=== PATIENT | male | born 1965 | race Caucasian/White ===

== ENCOUNTER 2017-08-24 16:26 | Emergency (ER) | payer BC, OTHER ==
[2017-08-24] MEDS ORDERED: Sodium Chloride 0.9% 1000 ML 1,000 ML IV STA (16:45)
--- NOTE | 2017-08-24 16:50 | ERPHSYRPT ---
- History of Present Illness Time Seen by Provider: 08/24/17 16:47 Source: patient Exam Limitations: no limitations Physician History: mild to mod elevated blood sugar for one day, over 600, takes metformin, not dizzy, no NV, no fever, hx positional mild ache of the right shoulder for one week after lifting and bending, no injury Allergies/Adverse Reactions: No Known Drug Allergies Allergy (Verified 08/24/17 16:48) Home Medications: Omeprazole Magnesium [Prilosec Otc] 20 mg PO DAILY 08/26/15 [History] Metformin HCl 500 mg [Glucophage 500 MG] 500 mg PO BID 08/24/17 [History] Hx Tetanus, Diphtheria Vaccination/Date Given: Yes Hx Influenza Vaccination/Date Given: Yes Hx Pneumococcal Vaccination/Date Given: No - Review of Systems Constitutional: No Fever Eyes: No Eye Redness Ears, Nose, & Throat: No Mouth Pain Respiratory: No Cough, No Cyanosis, No Dyspnea Cardiac: No Chest Pain, No Syncope Abdominal/Gastrointestinal: No Abdominal Pain, No Vomiting Genitourinary Symptoms: No Dysuria Musculoskeletal: Joint Pain, No Back Pain, No Neck Pain Skin: No Rash Neurological: No Dizziness - Past Medical History Pertinent Past Medical History: Yes Cardiac History: High Cholesterol, Hypertension - Past Surgical History Past Surgical History: Yes Gastrointestinal: Hernia Repair - Social History Smoking Status: Current every day smoker Exposure to second hand smoke: Yes Drug Use: none Patient Lives Alone: No - Nursing Vital Signs Nursing Vital Signs: Initial Vital Signs Temperature 98.7 F 08/24/17 16:33 Pulse Rate 84 08/24/17 16:33 Respiratory Rate 18 08/24/17 16:33 Blood Pressure 141/87 08/24/17 16:33 O2 Sat by Pulse Oximetry 96 08/24/17 16:33 Pain Scale Pain Intensity 8 - Physical Exam General Appearance: no apparent distress Eye Exam: PERRL/EOMI Ears, Nose, Throat Exam: moist mucous membranes Neck Exam: normal inspection Respiratory Exam: normal breath sounds Cardiovascular Exam: regular rate/rhythm Gastrointestinal/Abdomen Exam: soft, No tenderness Extremity Exam: normal range of motion, other (tender deltoid, no sts, no heat, full kwabena, sen and pulses intact, nontender bony shoulder) Neurologic Exam: alert, oriented x 3, cooperative Skin Exam: warm, dry - Course Nursing assessment & vital signs reviewed: Yes Ordered Tests: Active Orders 24 hr Category Date Time Status ACCUCHECK [Accucheck] STAT Care 08/24/17 16:46 Active IV Insertion STAT Care 08/24/17 16:45 Active CMP Stat Lab 08/24/17 17:08 Completed Medication Summary Discontinued Medications Generic Name Dose Route Start Last Admin Trade Name Joseph PRN Reason Stop Dose Admin Acetaminophen 1,000 mg 08/24/17 17:34 08/24/17 17:37 Tylenol Extra Strength 500 Mg PO 08/24/17 17:35 1,000 mg STAT ONE Administration Acetaminophen Confirm 08/24/17 17:36 Tylenol Extra Strength 500 Mg Administered 08/24/17 17:37 Dose 1,000 mg .ROUTE .STK-MED ONE Sodium Chloride 1,000 mls @ 999 mls/hr 08/24/17 16:45 08/24/17 17:02 Sodium Chloride 0.9% 1000 Ml IV 08/24/17 17:45 999 mls/hr .Q1H1M STA Administration Sodium Chloride Confirm 08/24/17 17:01 Sodium Chloride 0.9% 1000 Ml Administered 08/24/17 17:02 Dose 1,000 mls @ ud .ROUTE .STK-MED ONE Insulin Human Regular 2 unit 08/24/17 17:27 08/24/17 17:32 Novolin R IV 08/24/17 17:28 2 unit STAT ONE Administration Insulin Human Regular Confirm 08/24/17 17:31 Novolin R Administered 08/24/17 17:32 Dose 2 unit .ROUTE .STK-MED ONE Lab/Rad Data: Laboratory Result Diagrams 08/24/17 17:08 Laboratory Results 08/24/17 Range/Units 17:08 Sodium 136 L (137-145) mmol/L Potassium 4.1 (3.5-5.1) mmol/L Chloride 101 (98-107) mmol/L Carbon Dioxide 22 (22-30) mmol/L Anion Gap 16.6 H (5-15) MEQ/L BUN 12 (9-20) mg/dL Creatinine 0.86 (0.66-1.25) mg/dL Estimated GFR > 60.0 ML/MIN Glucose 360 H (74-106) mg/dL Calcium 9.6 (8.4-10.2) mg/dL Total Bilirubin 0.60 (0.2-1.3) mg/dL AST 82 H (17-59) U/L ALT 81 H (0-50) U/L Alkaline Phosphatase 145 H (38-126) U/L Serum Total Protein 7.2 (6.3-8.2) g/dL Albumin 4.0 (3.5-5.0) g/dL - Progress Progress: improved Progress Note: 08/24/17 18:05 continue present medical regimen, return if worse, oral fluids Discussed with : Salvador Will see patient in: office Counseled pt/family regarding: lab results, diagnosis, need for follow-up - Departure Time of Disposition: 18:06 Departure Disposition: Home Clinical Impression: Hyperglycemia Condition: Stable Critical Care Time: No Referrals: MARIPOSA DUNCAN MD [Primary Care Provider] - Instructions: Hyperglycemia, Adult (DC)
[2017-08-24] MEDS ORDERED: Sodium Chloride 0.9% 1000 ML 1,000 ML ONE (17:01)
[2017-08-24 17:23] LABS: ALKALINE PHOSPHATASE 145 U/L (38-126); ANION GAP 16.6 MEQ/L (5-15); BLOOD UREA NITROGEN 12 mg/dL (9-20); CHLORIDE 101 mmol/L (98-107); Calcium 9.6 mg/dL (8.4-10.2); Carbon Dioxide 22 mmol/L (22-30); Creatinine 1 0.86 mg/dL (0.66-1.25); Glucose 360 mg/dL (74-106); Potassium 4.1 mmol/L (3.5-5.1); SGOT/AST 82 U/L (17-59); SGPT/ALT 81 U/L (0-50); SODIUM 136 mmol/L (137-145); Total Protein 7.2 g/dL (6.3-8.2)
[2017-08-24] MEDS ORDERED: NovoLIN R IV ONE (17:27)
[2017-08-24] MEDS ORDERED: NovoLIN R ONE (17:31)
[2017-08-24] MEDS ORDERED: TYLENOL EXTRA STRENGTH 500 MG PO ONE (17:34)
[2017-08-24] MEDS ORDERED: TYLENOL EXTRA STRENGTH 500 MG ONE (17:36)
[2017-08-24 17:39] VITALS: O2SAT 95
[2017-08-24 18:17] VITALS: BP 140/85; PULSE 76
== END 2017-08-24 18:17 | disposition home or self-care (01) ==
LOC: ED 16:26
DX: R73.9 Hyperglycemia, unspecified (principal); Z79.899 Other long term (current) drug therapy
CPT/HCPCS: 36000; 36415; 80053; 82962; 96360; 96374; 99284; A9270-GY

== ENCOUNTER 2019-04-06 13:13 | Emergency (ER) | payer OTHER ==
[2019-04-06 13:30] VITALS: BP 166/80; PULSE 71
--- NOTE | 2019-04-06 13:30 | ERPHSYRPT ---
- History of Present Illness Time Seen by Provider: 04/06/19 13:30 Source: patient Exam Limitations: no limitations (2) Physician History: 53 y/o white male with a prior h/o low back pain, presents with worsening right lower back pain over 2 to 3 days. 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 no acute trauma. pt has nkda and takes no meds. no urinary sx. Timing/Duration: constant, worse Method of Injury: other (driving heavy equipment at work) Quality: sharp, stabbing Back Pain Location: lumbar spine Severity of Pain-Max: moderate Severity of Pain-Current: moderate Modifying Factors: Improves With: movement Associated Symptoms: lower back pain, muscle spasms Previous symptoms: same symptoms as today Allergies/Adverse Reactions: No Known Drug Allergies Allergy (Verified 04/06/19 13:30) Home Medications: Omeprazole Magnesium [Prilosec Otc] 20 mg PO DAILY 08/26/15 [History] Glipizide Xl 10 mg [Glucotrol Xl 10 MG] 10 mg PO DAILY 04/06/19 [History] Hx Tetanus, Diphtheria Vaccination/Date Given: Yes Hx Influenza Vaccination/Date Given: Yes Hx Pneumococcal Vaccination/Date Given: No - Review of Systems Constitutional: No Symptoms Eyes: No Symptoms Ears, Nose, & Throat: No Symptoms Respiratory: No Symptoms Cardiac: No Symptoms Abdominal/Gastrointestinal: No Symptoms Genitourinary Symptoms: No Symptoms Musculoskeletal: Back Pain Skin: No Symptoms Neurological: No Symptoms Psychological: No Symptoms Endocrine: No Symptoms Hematologic/Lymphatic: No Symptoms Immunological/Allergic: No Symptoms All Other Systems: Reviewed and Negative - Past Medical History Pertinent Past Medical History: Yes Neurological History: No Pertinent History ENT History: No Pertinent History Cardiac History: High Cholesterol, Hypertension Respiratory History: No Pertinent History Endocrine Medical History: Diabetes Type II Musculoskeletal History: No Pertinent History GI Medical History: GERD History: No Pertinent History Psycho-Social History: Anxiety, Depression Male Reproductive Disorders: No Pertinent History - Past Surgical History Past Surgical History: Yes Neuro Surgical History: No Pertinent History Cardiac: No Pertinent History Respiratory: No Pertinent History Gastrointestinal: Hernia Repair Genitourinary: No Pertinent History Musculoskeletal: No Pertinent History Male Surgical History: No Pertinent History - Social History Smoking Status: Current every day smoker How long have you smoked: 42 Exposure to second hand smoke: Yes Drug Use: none Patient Lives Alone: No - Nursing Vital Signs Nursing Vital Signs: Initial Vital Signs Temperature 98.9 F 04/06/19 13:19 Pulse Rate 71 04/06/19 13:19 Blood Pressure 166/80 04/06/19 13:19 O2 Sat by Pulse Oximetry 97 04/06/19 13:19 Pain Scale Pain Intensity [Right 9 Posterior Distal Back] Pain Intensity 9 - Physical Exam General Appearance: mild distress, alert, anxiety Eye Exam: PERRL/EOMI, eyes nml inspection Ears, Nose, Throat Exam: normal ENT inspection, moist mucous membranes Neck Exam: normal inspection, non-tender, supple, full range of motion Respiratory Exam: airway intact, No chest tenderness, No respiratory distress Gastrointestinal Exam: No tenderness Rectal Exam: not done Back Exam: normal inspection, normal range of motion, muscle spasm, No CVA tenderness, No vertebral tenderness Extremity Exam: normal inspection, normal range of motion, pelvis stable Neurologic Exam: alert, oriented x 3, cooperative, figure clerk II-XII nml as tested Skin Exam: normal color, warm, dry Lymphatic Exam: No adenopathy SpO2 Interpretation: normal O2 Delivery: Room Air - Course Nursing assessment & vital signs reviewed: Yes - Progress Progress: unchanged Counseled pt/family regarding: diagnosis, need for follow-up - Departure Departure Disposition: Home Clinical Impression: Low back pain, Sciatica Condition: Stable Critical Care Time: No Referrals: MARIPOSA DUNCAN MD [Primary Care Provider] - Additional Instructions: bedrest except ambulate at home until 04/08/19. follow up with primary doctor for further management Forms: Work/School Release Form Prescriptions: Carisoprodol 350 mg [Soma 350 mg] 350 mg PO Q8H PRN PRN #10 tablet PRN Reason: Muscle Spasms Hydrocodone/APAP 5-325 Tab^^^ [[place] 5-325 Tablet^^^] 1 tab PO Q12H PRN PRN #6 tablet MDD 2 PRN Reason: Pain Prednisone 10 mg [Deltasone 10 mg] 10 mg PO TID #12 tablet
[2019-04-06 13:52] VITALS: O2SAT 93
[2019-04-06] MEDS ORDERED: Adacel Vial IM ONE (14:03)
[2019-04-06] MEDS ORDERED: KEFLEX 500 MG PO ONE (14:03)
[2019-04-06] MEDS ORDERED: XYLOCAINE 1% HCL 20 ML MDV IJ ONE (14:03)
[2019-04-06] MEDS ORDERED: EMLA Cream 5 GM TP ONE (14:05)
[2019-04-06] MEDS ORDERED: NORCO 5/325 MG PO ONE (14:05)
== END 2019-04-06 14:19 | disposition home or self-care (01) ==
LOC: ED 13:13
DX: M54.41 Lumbago with sciatica, right side (principal); R25.2 Cramp and spasm; E78.00 Pure hypercholesterolemia, unspecified; I10 Essential (primary) hypertension; E11.9 Type 2 diabetes mellitus without complications
CPT/HCPCS: 99283